=== PATIENT | male | born 1980 | race Two or more races ===

== ENCOUNTER 2019-11-10 11:57 | Emergency (ER) | payer SELFPAY ==
[~2019-11-10] VITALS: Ht 190.5 cm; Wt 70.1 kg
[2019-11-10 12:07] VITALS: BP 107/65
== END 2019-11-10 12:33 | disposition left against medical advice (07) ==
LOC: ED 12:10
DX: F41.9 Anxiety disorder, unspecified (principal); R10.9 Unspecified abdominal pain; Z53.21 Procedure and treatment not carried out due to patient leaving prior to being seen by health care provider